=== PATIENT | male | born 1950 | race Caucasian/White ===

== ENCOUNTER 2020-06-16 13:33 | Inpatient (IN) | payer OTHER ==
[~2020-06-16] VITALS: Ht 175.3 cm; Wt 73.9 kg
[2020-06-16] MEDS ORDERED: DIVA500T2 PO (14:02)
[2020-06-16] MEDS ORDERED: LEVO112T5 PO (14:02)
[2020-06-16] MEDS ORDERED: DIVA250T4 PO (14:02)
[2020-06-16] MEDS ORDERED: ATOR10TA PO (14:02)
[2020-06-16] MEDS ORDERED: CALC-1029 PO (14:02)
[2020-06-16] MEDS ORDERED: GABA-532 PO (14:02)
[2020-06-16] MEDS ORDERED: ARIP20TA4 PO (14:02)
[2020-06-16] MEDS ORDERED: LORA-258 PO (14:02)
[2020-06-16] MEDS ORDERED: TAMS-3 PO (14:02)
[2020-06-16] MEDS ORDERED: OLAN10TA3 PO (14:02)
[2020-06-16] MEDS ORDERED: ALBUTEROL INH (14:02)
[2020-06-16] MEDS ORDERED: OXCA300T4 PO ×2 (14:02)
--- NOTE | 2020-06-16 15:40 | NUR ---
hospital sandwich provided per pt request.
--- NOTE | 2020-06-16 16:10 | NUR ---
pt transfered to [facility] in stable condition. pt remained calm and cooperative the whole er stay.
--- NOTE | 2020-06-16 16:30 | NUR ---
Gps/Coat Agent- Admitted a 69 years old male patient under 5150 for Gravely disabled. Per hold patient has worsening irritability and aggression. Seen by Psychiatrist over telehealth video chat and deemed failure to thrive at the Assisted living Facility. Upon face to face with patient , denies any S.I. nor H.I. , no access to lethal meds. Patient claimed he had 3 seizures in the past week and had a fall.Patient zuleika was confused, rabling, yelling ,screaming ,irritable, aggressive , masturbating in the gurney , bizarre and disorganized. Asked patient why he's admitted in the Hospital., stated " i dont know why i'm here" Routine admission care .
[2020-06-16 16:40] VITALS: BP 119/73
[2020-06-16] MEDS ORDERED: ALBUTEROL SULFATE 2.5 MG/3 ML NEBU NEB PRN (16:45)
[2020-06-16] MEDS ORDERED: BLOOD SUGAR DIAGNOSTIC 1 EACH STRIP VI ONE (17:30)
[2020-06-16] MEDS ORDERED: ZOLPIDEM 5 MG TABLET PO PRN (17:30)
[2020-06-16] MEDS ORDERED: MAGNESIUM HYDROXIDE 30 ML LIQUID UDC PO PRN (17:30)
[2020-06-16] MEDS ORDERED: MAG HYDROX/AL HYDROX/SIMETH 30 ML LIQUID UDC PO PRN (17:30)
[2020-06-16 18:12] VITALS: BP 119/75
[2020-06-16] MEDS: GABAPENTIN 300 MG CAPSULE PO SCH (18:36)
[2020-06-16] MEDS: ATORVASTATIN 10 MG TABLET PO SCH (18:36)
[2020-06-16 20:00] VITALS: BP 118/73
[2020-06-17] MEDS: LORAZEPAM 1 MG TABLET PO PRN (01:03)
--- NOTE | 2020-06-17 04:27 | NUR ---
GPS/Rn: Pt is new admit from previous shift, a/ox1, with poor insight. Pt unaware of surrounding, incoherent, and disorganized, confuse. Pt verbally responding and interacting but not making sense. Pt appears unkempt and easily irritated with interaction. Pt was offered some snacks during night due to constant yelling or talking. Noted few episode of banging bedside table or bed for attention. Redirected but not effective. Pt will cry on and off and prn was administered at 0102. At this time noted not effective, pt still up in bed and yelling, talking. Will anticipate increase behavior and changes, and will continue monitor pt as per Q/15mins head count.
[2020-06-17] MEDS: LEVOTHYROXINE SODIUM 112 MCG TABLET PO SCH (06:42)
[2020-06-17 07:30] VITALS: BP 120/74
[2020-06-17] MEDS: TAMSULOSIN HCL 0.4 MG CAP.SR.24H PO SCH (08:38)
[2020-06-17] MEDS: GABAPENTIN 300 MG CAPSULE PO SCH ×2 (08:38→16:48)
[2020-06-17] MEDS: CALCIUM CARB/VITAMIN D 500MG-200UNITS TABLET PO SCH (08:42)
[2020-06-17] MEDS: ACETAMINOPHEN 325 MG TABLET PO PRN ×2 (08:51→17:03)
--- NOTE | 2020-06-17 13:39 | NUR ---
Gps/Lnv Rodney(brother) called, was able to talked to Dr Hall, and information obtained patient was post Covid about 2 months ago, and since patient with limited mobility , uses wheel chair for locomotion . Able to transfer self from bed to chair. Neuro-consult was ordered by Dr Hall.
--- NOTE | 2020-06-17 15:00 | NUR ---
Gps/Outcome Analyst- An open slit wound behind his left eat, cleansed w/ NS kept dry, slightly red, no drainage noted , tenderness to site noted.
[2020-06-17 16:00] VITALS: BP 103/57
[2020-06-17] MEDS: OLANZAPINE ZYDIS 5 MG TAB.RAPDIS PO SCH ×2 (16:10→20:39)
[2020-06-17] MEDS: DIVALPROEX 500 MG TABLET.DR PO SCH (16:48)
--- NOTE | 2020-06-17 17:21 | NUR ---
Gps/Safety Trainer- Patient non compliant with his dietary restrictions, patient req. salts in his tray, , claimed he will not eat if staff dont give him salt. Requested, milk and shaye crackers.
[2020-06-17] MEDS: ATORVASTATIN 10 MG TABLET PO SCH (17:25)
[2020-06-17] MEDS: OXCARBAZEPINE 150 MG TABLET PO SCH (17:35)
--- NOTE | 2020-06-17 17:50 | NUR ---
Gps/Coreroom Foundry Laborer- Patient is needy, constantly asking for something .
[2020-06-17 20:39] VITALS: BP 111/69
--- NOTE | 2020-06-18 04:57 | NUR ---
GPS/rn notes: Pt was more aware of surrounding today. responded verbally and coherent a lot more. Requested to speak to his sister and phone number was provide and call was placed for him. Pt denied HI, SI or intent to harm self or others. Snack was give and eta 100%. Pt cooperative with routine medications and requested PRN sleep aid. Noted effective and pt asleep at this time. No excessive behavior noted, breathing even and no SOB noted. Will anticipate all changes, behavior and will continue safety precaution.
[2020-06-18] MEDS: LEVOTHYROXINE SODIUM 112 MCG TABLET PO SCH (06:44)
[2020-06-18 07:30] VITALS: BP 113/69
[2020-06-18] MEDS: ACETAMINOPHEN 325 MG TABLET PO PRN ×2 (08:17→16:50)
[2020-06-18] MEDS: DIVALPROEX 500 MG TABLET.DR PO SCH ×3 (08:24→16:45)
[2020-06-18] MEDS: OLANZAPINE ZYDIS 5 MG TAB.RAPDIS PO SCH ×2 (08:24→20:28)
[2020-06-18] MEDS: CALCIUM CARB/VITAMIN D 500MG-200UNITS TABLET PO SCH (08:24)
[2020-06-18] MEDS: GABAPENTIN 300 MG CAPSULE PO SCH ×2 (08:24→16:44)
[2020-06-18] MEDS: TAMSULOSIN HCL 0.4 MG CAP.SR.24H PO SCH (08:25)
--- NOTE | 2020-06-18 11:43 | NUR ---
Gps/Army Senior Officer- Patient observed walking with P.T. using front wheel walker, transfers self ind. from chair to bed and bed to chair, safety reviewed and emphasized.
--- NOTE | 2020-06-18 15:00 | NUR ---
Gps/Housing Director- Needy , demanding , needed redirections , with limit settings, irritable when not given chance to talk , claimed he wants staff to listen to him first before anything else. Dentures full, uses his own fixodent in his locker .
[2020-06-18 15:24] VITALS: BP 109/69
[2020-06-18] MEDS: OXCARBAZEPINE 150 MG TABLET PO SCH (17:11)
[2020-06-18] MEDS: ATORVASTATIN 10 MG TABLET PO SCH (17:11)
[2020-06-18 20:47] VITALS: BP 126/64
[2020-06-19] MEDS: LEVOTHYROXINE SODIUM 112 MCG TABLET PO SCH (06:04)
[2020-06-19] MEDS: ACETAMINOPHEN 325 MG TABLET PO PRN ×4 (06:24→21:20)
[2020-06-19 07:30] VITALS: BP 96/62
[2020-06-19] MEDS: GABAPENTIN 300 MG CAPSULE PO SCH ×2 (08:38→16:33)
[2020-06-19] MEDS: TAMSULOSIN HCL 0.4 MG CAP.SR.24H PO SCH (08:38)
[2020-06-19] MEDS: DIVALPROEX 500 MG TABLET.DR PO SCH ×3 (08:38→16:33)
[2020-06-19] MEDS: OLANZAPINE ZYDIS 5 MG TAB.RAPDIS PO SCH ×2 (08:38→20:32)
[2020-06-19] MEDS: CALCIUM CARB/VITAMIN D 500MG-200UNITS TABLET PO SCH (08:38)
[2020-06-19] MEDS: NEOMY/BACITRAC/POLYMI OINT 28.35 GM TUBE TOP SCH (08:39)
--- NOTE | 2020-06-19 10:45 | NUR ---
FACILITY CONTACT: SW contacted [facility] Address: [address] [place] [address] and spoke with suyapa Thayer who confirmed pt is able to return to the facility once stable for discharge.
--- NOTE | 2020-06-19 11:07 | NUR ---
FAMILY CONTACT: SW contacted pts brother Rodney ([phone]) for collateral information, treatment, and discharge plan. Per brother he would like for pt to return to [facility] Address: [id number] [place] [id number] .
--- NOTE | 2020-06-19 12:03 | NUR ---
INITIAL DISCHARGE PLAN: Per pt he wishes to return to [facility] Address: [address] [facility], [place] [address] . PALAK will help form a safe and proper discharge in collaboration with .
--- NOTE | 2020-06-19 15:22 | NUR ---
FIREARM REPORTS: Carbide Grinder completed and submitted a [facility] firearms report for [address] [place] [facility]. A copy of report has been placed in patients chart. Addendum: 06/19/20 at 1524 by MELLISSA CID SW ERROR NOTE DISREGARD
--- NOTE | 2020-06-19 15:24 | NUR ---
FIREARMS REPORT: Assault Amphibious Vehicle Officer completed and submitted a [facility] firearms report for [address] disability hold. A copy of report has been placed in patients chart.
--- NOTE | 2020-06-19 15:43 | NUR ---
Gps/RN: Patient needy and keep going to nurse station to ask for medication and belongings couple of times in the morning. Patient routine medication given with good effect. no agitation noted. not in distress. will continue monitor
[2020-06-19 15:48] VITALS: BP 100/69
[2020-06-19] MEDS: OXCARBAZEPINE 150 MG TABLET PO SCH (17:14)
[2020-06-19 20:00] VITALS: BP 101/60
[2020-06-19] MEDS: ATORVASTATIN 10 MG TABLET PO SCH (20:33)
[2020-06-20] MEDS: LEVOTHYROXINE SODIUM 112 MCG TABLET PO SCH (06:08)
[2020-06-20] MEDS: ACETAMINOPHEN 325 MG TABLET PO PRN ×3 (06:11→20:56)
[2020-06-20 07:30] VITALS: BP 95/50
[2020-06-20] MEDS: GABAPENTIN 300 MG CAPSULE PO SCH ×2 (08:26→17:10)
[2020-06-20] MEDS: DIVALPROEX 500 MG TABLET.DR PO SCH ×3 (08:26→17:10)
[2020-06-20] MEDS: OLANZAPINE ZYDIS 5 MG TAB.RAPDIS PO SCH ×2 (08:26→20:51)
[2020-06-20] MEDS: CALCIUM CARB/VITAMIN D 500MG-200UNITS TABLET PO SCH (08:27)
[2020-06-20] MEDS: NEOMY/BACITRAC/POLYMI OINT 28.35 GM TUBE TOP SCH (08:27)
[2020-06-20] MEDS: TAMSULOSIN HCL 0.4 MG CAP.SR.24H PO SCH (08:27)
[2020-06-20] MEDS: OXCARBAZEPINE 150 MG TABLET PO SCH (17:10)
[2020-06-20 17:16] VITALS: BP 100/60
[2020-06-20 20:03] VITALS: BP 93/64
[2020-06-20] MEDS: ATORVASTATIN 10 MG TABLET PO SCH (20:51)
[2020-06-21] MEDS: ACETAMINOPHEN 325 MG TABLET PO PRN ×4 (04:09→23:45)
[2020-06-21] MEDS: LEVOTHYROXINE SODIUM 112 MCG TABLET PO SCH (06:09)
[2020-06-21 06:38] LABS: BASOPHILS # (AUTO) 0.1 K/uL (0.0-8.0); EOSINOPHILS # (AUTO) 0.1 K/uL (0.0-0.7); EOSINOPHILS % (AUTO) 1.5 % (0.0-7.0); HEMATOCRIT 45.6 % (36.7-47.1); HEMOGLOBIN 15.2 g/dL (12.5-16.3); LYMPHOCYTES # (AUTO) 2.1 K/uL (20.0-40.0); MEAN CORPUSCULAR HEMOGLOBIN 32.1 uug (23.8-33.4); MEAN CORPUSCULAR HGB CONC 33 g/dL (32.5-36.3); MEAN CORPUSCULAR VOLUME 96.1 fL (73.0-96.2); MONOCYTES # (AUTO) 0.4 K/uL (2.0-10.0); MONOCYTES % (AUTO) 7.8 % (0.0-11.0); NEUTROPHILS # (AUTO) 2.7 K/uL (1.8-8.9); NEUTROPHILS % (AUTO) 50.7 % (38.5-71.5); PLATELET COUNT (AUTO) 336 K/uL (152-348); RED BLOOD CELL COUNT(AUTO) 4.74 MIL/uL (4.06-5.63); WHITE BLOOD COUNT (AUTO) 5.4 K/uL (3.6-10.2)
[2020-06-21 07:22] LABS: CREATININE 0.7 mg/dL (0.6-1.3); MAGNESIUM 1.9 mg/dL (1.8-2.4); PHOSPHOROUS 3.5 mg/dL (2.5-4.9); POTASSIUM 4.3 mmol/L (3.5-5.1)
[2020-06-21 07:30] VITALS: BP 99/71
--- NOTE | 2020-06-21 07:30 | NUR ---
RECEIVED PATIENT ON WHEELCHAIR, ATTENTION SEEKING, INTRUSIVE, NEEDED TO BE REDIRECTED, PATIENT COMPLIANT WITH MEDICATION, ASKING FOR PAIN MEDICATION, VERY NEEDY
[2020-06-21] MEDS: OLANZAPINE ZYDIS 5 MG TAB.RAPDIS PO SCH ×2 (08:44→20:16)
[2020-06-21] MEDS: LORAZEPAM 1 MG TABLET PO PRN (08:44)
[2020-06-21] MEDS: TAMSULOSIN HCL 0.4 MG CAP.SR.24H PO SCH (08:44)
[2020-06-21] MEDS: DIVALPROEX 500 MG TABLET.DR PO SCH ×3 (08:44→16:04)
[2020-06-21] MEDS: GABAPENTIN 300 MG CAPSULE PO SCH ×2 (08:44→16:03)
[2020-06-21] MEDS: CALCIUM CARB/VITAMIN D 500MG-200UNITS TABLET PO SCH (08:47)
[2020-06-21] MEDS: NEOMY/BACITRAC/POLYMI OINT 28.35 GM TUBE TOP SCH (08:48)
--- NOTE | 2020-06-21 12:16 | NUR ---
FACILITY CONTACT: SW contacted [facility] Address: [address] [place] [address] and spoke with Giovany [employer] who agreed with pts discharge tomorrow 06/22/20 at 12:00pm. He stated to fax prescriptions to the [facility] fax: [phone].
--- NOTE | 2020-06-21 14:07 | NUR ---
FAMILY CONTACT: SW contacted pts brother Rodney ([phone]) and informed him of pts discharge tomorrow to [facility]. Brother agrees with discharge plan.
[2020-06-21 16:06] VITALS: BP 112/54
[2020-06-21] MEDS: OXCARBAZEPINE 150 MG TABLET PO SCH (17:21)
--- NOTE | 2020-06-21 18:11 | NUR ---
PATIENT BEEN REDIRECTABLE COVID TEST WAS DONE TODAY REQUIREMENTS FOR HIS DISCHARGE, PATIENT WAS NEGATIVE, PATIENT NEEDY AND NEEDED ATTENTION, NO DISTRESS, DENIES SI AND HI
[2020-06-21 20:10] VITALS: BP 121/74
[2020-06-21] MEDS: ATORVASTATIN 10 MG TABLET PO SCH (20:16)
[2020-06-22] MEDS: LEVOTHYROXINE SODIUM 112 MCG TABLET PO SCH (06:20)
[2020-06-22] MEDS: ACETAMINOPHEN 325 MG TABLET PO PRN ×2 (06:21→12:04)
[2020-06-22 07:30] VITALS: BP 108/58
[2020-06-22] MEDS: TAMSULOSIN HCL 0.4 MG CAP.SR.24H PO SCH (08:55)
[2020-06-22] MEDS: DIVALPROEX 500 MG TABLET.DR PO SCH ×2 (08:55→12:04)
[2020-06-22] MEDS: CALCIUM CARB/VITAMIN D 500MG-200UNITS TABLET PO SCH (08:55)
[2020-06-22] MEDS: GABAPENTIN 300 MG CAPSULE PO SCH (08:55)
[2020-06-22] MEDS: OLANZAPINE ZYDIS 5 MG TAB.RAPDIS PO SCH (08:56)
[2020-06-22] MEDS: NEOMY/BACITRAC/POLYMI OINT 28.35 GM TUBE TOP SCH (08:59)
--- NOTE | 2020-06-22 09:13 | NUR ---
DISCHARGE NOTE: Pt will be discharged at 12:00pm via [facility] to [facility] Address: [address] [place] [address] . Pts brother Rodney ([phone]) has been notified and agrees with discharge plan. Pts mood is euthymic with congruent affect. Pt denies visual/auditory hallucinations and denies suicidal/homicidal ideation. Pt presents alert and oriented x4 ans is appropriately dressed and groomed. Pt will follow up with Psychiatrist: Dr. Kristine Bonilla [address] [address] and Subpoena Server: Dr. JULIO [facility] [address] [place] [address] . The multidisciplinary exit care form was done, printed, signed, and given to the patient.
--- NOTE | 2020-06-22 12:00 | NUR ---
Gps/Sales Attendant- Called [facility], spoked to Rut, reviewed medications , informed of the discharged plan, waiting for patient . Dr Kristine Bonilla (Psychiatrist) will follow patient ,drew Jara INSPECTOR FINAL ASSEMBLY ELECTRICAL was informed of the discharge. All belongings was given back to patient..
--- NOTE | 2020-06-22 13:07 | NUR ---
Gps/Polytechnic Registrar- Discharged via taxi, patient in good spirit no complaints noted.
== END 2020-06-22 13:00 | disposition home or self-care (01) | DRG 885 ==
LOC: ER 13:33 → GPS 16:11
PROVIDERS: ADMIT Psychiatry & Neurology Psychiatry; ATTEND Nurse Practitioner Acute Care
DX: F25.0 Schizoaffective disorder, bipolar type (principal); G40.909 Epilepsy, unspecified, not intractable, without status epilepticus; E78.5 Hyperlipidemia, unspecified; E03.9 Hypothyroidism, unspecified; F17.210 Nicotine dependence, cigarettes, uncomplicated; N40.0 Benign prostatic hyperplasia without lower urinary tract symptoms; Z73.6 Limitation of activities due to disability; F29 Unspecified psychosis not due to a substance or known physiological condition; F39 Unspecified mood [affective] disorder; F19.90 Other psychoactive substance use, unspecified, uncomplicated
CPT/HCPCS: 36415; 80164; 83735; 84100; 85025; 93005

== ENCOUNTER 2025-01-31 14:40 | Inpatient (IN) | payer OTHER, MEDICAID ==
[~2025-01-31] VITALS: Ht 167.6 cm; Wt 77.6 kg
[2025-01-31 00:30] VITALS: BP 124/71; TEMP 97.8; O2SAT 93
[~2025-01-31 14:40] MED LIST: ALBUTEROL INH; ATOR10TA PO; CALC-1029 PO; GABA-532 PO; LEVO112T5 PO; TAMS-3 PO
[2025-01-31 15:03] LABS: BASOPHILS # (AUTO) 0.1 K/UL (0.0-0.2); BASOPHILS % (AUTO) 1.1 % (0.0-2.0); EOSINOPHILS # (AUTO) 0.1 K/uL (0.0-0.7); EOSINOPHILS % (AUTO) 1.3 % (0.0-7.0); HEMATOCRIT 37.6 % (36.7-47.1); HEMOGLOBIN 12.7 g/dL (12.5-16.3); LYMPHOCYTES # (AUTO) 2.1 K/uL (0.8-4.8); LYMPHOCYTES % (AUTO) 28.4 % (20.5-51.5); MEAN CORPUSCULAR HEMOGLOBIN 30.2 uug (23.8-33.4); MEAN CORPUSCULAR HGB CONC 34 g/dL (32.5-36.3); MEAN CORPUSCULAR VOLUME 89.5 fL (73.0-96.2); MONOCYTES # (AUTO) 0.7 K/uL (0.1-1.30); MONOCYTES % (AUTO) 9.9 % (0.0-11.0); NEUTROPHILS # (AUTO) 4.4 K/uL (1.8-8.9); NEUTROPHILS % (AUTO) 59.3 % (38.5-71.5); PLATELET COUNT (AUTO) 202 K/uL (152-348); RED CELL DISTRIBUTION WIDTH 17.3 % (12.1-16.2); WHITE BLOOD COUNT (AUTO) 7.5 K/uL (3.6-10.2)
[2025-01-31 15:11] LABS: DIFFERENTIAL COMMENT 1
[2025-01-31 15:14] LABS: CALCIUM 8.8 mg/dL (8.5-10.1); CARBON DIOXIDE 29 mmol/L (21-32); CHLORIDE 101 mmol/L (98-107); CREATININE 0.5 mg/dL (0.6-1.3); GLUCOSE 89 mg/dL (74-106); POTASSIUM 4.8 mmol/L (3.5-5.1); SODIUM SERUM 139 mmol/L (136-145); UREA NITROGEN, BLOOD 22 mg/dL (7-18)
[2025-01-31] MEDS ORDERED: VALPROATE SODIUM 500 MG/5 ML VIAL IV ONE (15:17)
[2025-01-31] MEDS: VALPROATE SODIUM 500 MG/5 ML VIAL IV ONE (15:18)
[2025-01-31 15:29] LABS: ALANINE AMINOTRANSFERASE 24 U/L (16-63); ALBUMIN 3.1 g/dL (3.4-5.0); ALKALINE PHOSPHATASE 58 U/L (50-136); ASPARTATE AMINOTRANSFERASE 17 U/L (15-37); BILIRUBIN,DIRECT 0.1 mg/dL (0.0-0.2); BILIRUBIN,TOTAL 0.2 mg/dL (0.2-1.0); TOTAL PROTEIN, SERUM 6.6 g/dL (6.4-8.2); VALPROIC ACID 60 ug/mL (50-100)
[2025-01-31] MEDS ORDERED: ACET-2030 PO (16:09)
[2025-01-31] MEDS ORDERED: VALP250C3 PO ×2 (16:09)
[2025-01-31] MEDS ORDERED: OXCA300T4 PO (16:09)
[2025-01-31] MEDS ORDERED: RISP4TAB70 PO (16:09)
[2025-01-31] MEDS ORDERED: VALP500S PO (16:09)
[2025-01-31] MEDS ORDERED: OXCA300T15 PO (16:09)
[2025-01-31] MEDS ORDERED: LORAZEPAM 2 MG/1 ML VIAL ONE (16:35)
[2025-01-31] MEDS: LORAZEPAM 2 MG/1 ML VIAL IV ONE (17:00)
[2025-01-31 17:07] LABS: ETHANOL < 3 MG/DL (0-10)
[2025-01-31] MEDS ORDERED: ONDANSETRON 4 MG/2 ML VIAL IV PRN (20:30)
[2025-01-31] MEDS ORDERED: HYDROCODONE/APAP 5-325MG TABLET PO PRN (20:30)
[2025-01-31] MEDS ORDERED: TEMAZEPAM 15 MG CAPSULE PO PRN (20:30)
[2025-01-31] MEDS: TAMSULOSIN HCL 0.4 MG CAP.SR.24H PO SCH (22:40)
[2025-01-31] MEDS: VALPROIC ACID 250 MG CAPSULE PO SCH (22:40)
[2025-01-31] MEDS: GABAPENTIN 100 MG CAPSULE PO SCH (22:40)
[2025-01-31] MEDS: ATORVASTATIN 10 MG TABLET PO SCH (22:40)
[2025-01-31] MEDS: DOCUSATE SODIUM 250 MG CAPSULE PO SCH (22:40)
[2025-01-31] MEDS: risperiDONE 2 MG TABLET PO SCH (22:40)
[2025-01-31] MEDS: OXCARBAZEPINE 300 MG TABLET PO SCH (22:40)
[2025-01-31] MEDS: LORAZEPAM 2 MG/1 ML VIAL IV PRN (23:28)
[2025-02-01] MEDS: OLANZAPINE 10 MG VIAL IM PRN (00:21)
[2025-02-01 03:29] VITALS: O2SAT 98
[2025-02-01 04:31] VITALS: BP 143/83; TEMP 98.1; O2SAT 97
[2025-02-01] MEDS: PANTOPRAZOLE SODIUM 40 MG TABLET.DR PO SCH (06:39)
[2025-02-01 06:49] LABS: BASOPHILS % (AUTO) 0.6 % (0.0-2.0); EOSINOPHILS # (AUTO) 0.1 K/uL (0.0-0.7); EOSINOPHILS % (AUTO) 0.8 % (0.0-7.0); HEMATOCRIT 41.5 % (36.7-47.1); HEMOGLOBIN 14.2 g/dL (12.5-16.3); LYMPHOCYTES # (AUTO) 1.7 K/uL (0.8-4.8); LYMPHOCYTES % (AUTO) 19.2 % (20.5-51.5); MEAN CORPUSCULAR HEMOGLOBIN 30.6 uug (23.8-33.4); MEAN CORPUSCULAR HGB CONC 34 g/dL (32.5-36.3); MEAN CORPUSCULAR VOLUME 89.2 fL (73.0-96.2); MONOCYTES # (AUTO) 0.9 K/uL (0.1-1.30); MONOCYTES % (AUTO) 10.7 % (0.0-11.0); NEUTROPHILS # (AUTO) 5.9 K/uL (1.8-8.9); NEUTROPHILS % (AUTO) 68.7 % (38.5-71.5); PLATELET COUNT (AUTO) 211 K/uL (152-348); RED BLOOD CELL COUNT(AUTO) 4.65 MIL/uL (4.06-5.63); RED CELL DISTRIBUTION WIDTH 16.9 % (12.1-16.2); WHITE BLOOD COUNT (AUTO) 8.6 K/uL (3.6-10.2)
[2025-02-01 06:57] LABS: DIFFERENTIAL COMMENT 1
[2025-02-01 07:08] LABS: ALANINE AMINOTRANSFERASE 27 U/L (16-63); ALBUMIN 3.3 g/dL (3.4-5.0); ALKALINE PHOSPHATASE 70 U/L (50-136); ASPARTATE AMINOTRANSFERASE 20 U/L (15-37); BILIRUBIN,TOTAL 0.3 mg/dL (0.2-1.0); CALCIUM 9.5 mg/dL (8.5-10.1); CARBON DIOXIDE 32 mmol/L (21-32); CHLORIDE 101 mmol/L (98-107); CHOLESTEROL 153 mg/dL (<200); CREATININE 0.5 mg/dL (0.6-1.3); GLUCOSE 81 mg/dL (74-106); HDL CHOLESTEROL 71 mg/dL (40-60); PHOSPHOROUS 3.5 mg/dL (2.5-4.9); POTASSIUM 4.6 mmol/L (3.5-5.1); SODIUM SERUM 139 mmol/L (136-145); TOTAL PROTEIN, SERUM 7.1 g/dL (6.4-8.2); TRIGLYCERIDES 47 MG/DL (30-150); UREA NITROGEN, BLOOD 11 mg/dL (7-18)
[2025-02-01 07:42] VITALS: BP 156/72; TEMP 98.8; O2SAT 96
[2025-02-01 08:16] LABS: THYROID STIMULATING HORMONE 10.018 mIU/mL (0.358-3.740)
[2025-02-01] MEDS: OXCARBAZEPINE 300 MG TABLET PO SCH (09:00)
[2025-02-01] MEDS ORDERED: VITAMIN D3 PO SCH (09:00)
[2025-02-01] MEDS: VALPROIC ACID 250 MG CAPSULE PO SCH (09:00)
[2025-02-01] MEDS ORDERED: [UNRECOGNIZED DRUG - OTHER] PO SCH (09:00)
[2025-02-01] MEDS ORDERED: CIT PO SCH (09:00)
[2025-02-01] MEDS: LEVOTHYROXINE SODIUM 112 MCG TABLET PO SCH (09:00)
[2025-02-01] MEDS ORDERED: CALCIUM CARB PO SCH (09:00)
[2025-02-01 11:42] VITALS: BP 109/65; TEMP 99.5; O2SAT 98
[2025-02-01] MEDS ORDERED: CHOL400T2 PO (13:26)
[2025-02-01] MEDS: LORAZEPAM 2 MG/1 ML VIAL IM ONE (13:56)
[2025-02-01] MEDS: OLANZAPINE 10 MG VIAL IM ONE (15:07)
[2025-02-01] MEDS: GABAPENTIN 100 MG CAPSULE PO SCH (16:43)
[2025-02-01] MEDS: IV NS 1000 ML 1,000 ML IV PRN (17:58)
[2025-02-01 19:30] VITALS: BP 126/66; TEMP 98.1; O2SAT 82; O2SAT 95
[2025-02-02] MEDS: ACETAMINOPHEN 325 MG TABLET PO PRN (00:35)
[2025-02-02 06:55] LABS: BASOPHILS % (AUTO) 0.6 % (0.0-2.0); EOSINOPHILS # (AUTO) 0.1 K/uL (0.0-0.7); HEMATOCRIT 41.3 % (36.7-47.1); HEMOGLOBIN 13.9 g/dL (12.5-16.3); LYMPHOCYTES # (AUTO) 1.9 K/uL (0.8-4.8); LYMPHOCYTES % (AUTO) 29.9 % (20.5-51.5); MEAN CORPUSCULAR HGB CONC 34 g/dL (32.5-36.3); MEAN CORPUSCULAR VOLUME 89.2 fL (73.0-96.2); MONOCYTES # (AUTO) 0.8 K/uL (0.1-1.30); MONOCYTES % (AUTO) 12.1 % (0.0-11.0); NEUTROPHILS # (AUTO) 3.6 K/uL (1.8-8.9); NEUTROPHILS % (AUTO) 55.4 % (38.5-71.5); PLATELET COUNT (AUTO) 213 K/uL (152-348); RED BLOOD CELL COUNT(AUTO) 4.63 MIL/uL (4.06-5.63); WHITE BLOOD COUNT (AUTO) 6.5 K/uL (3.6-10.2)
[2025-02-02 07:07] LABS: DIFFERENTIAL COMMENT 1
[2025-02-02 07:14] LABS: CALCIUM 9.3 mg/dL (8.5-10.1); CARBON DIOXIDE 27 mmol/L (21-32); CHLORIDE 107 mmol/L (98-107); CREATININE 0.5 mg/dL (0.6-1.3); GLUCOSE 84 mg/dL (74-106); POTASSIUM 4.1 mmol/L (3.5-5.1); SODIUM SERUM 142 mmol/L (136-145); UREA NITROGEN, BLOOD 19 mg/dL (7-18)
[2025-02-02 07:32] VITALS: BP 97/66; TEMP 98.5; O2SAT 91
[2025-02-02] MEDS: CHOLECALCIFEROL 400 UNITS TABLET PO SCH (08:20)
[2025-02-02] MEDS ORDERED: OLANZAPINE 10 MG VIAL IM PRN (09:15)
[2025-02-02] MEDS: risperiDONE 2 MG TABLET PO SCH (12:14)
[2025-02-02 20:16] VITALS: BP 98/58; TEMP 98.3; O2SAT 95
[2025-02-03 05:45] VITALS: BP 98/58; TEMP 98.3; O2SAT 95
[2025-02-03 06:46] VITALS: BP 112/65; TEMP 97.5; O2SAT 97
[2025-02-03 08:45] VITALS: BP 112/75; TEMP 97.5; O2SAT 97
[2025-02-03] MEDS ORDERED: RISP2TAB5 PO (09:59)
[2025-02-03] MEDS ORDERED: LEVO125T8 PO (09:59)
[2025-02-03] MEDS ORDERED: DOCU250C14 PO (09:59)
[2025-02-03] MEDS ORDERED: PANT40TA49 PO (09:59)
[2025-02-03 11:19] VITALS: BP 98/55; TEMP 98.3; O2SAT 97
[2025-02-04] MEDS ORDERED: LEVOTHYROXINE SODIUM 125 MCG TABLET PO SCH (07:00)
== END 2025-02-03 15:50 | DRG 101 ==
LOC: ER 14:40 → TELE3 21:56 → MEDSURG3 02-01 08:48
PROVIDERS: ADMIT Internal Medicine; ATTEND Internal Medicine
DX: G40.909 Epilepsy, unspecified, not intractable, without status epilepticus (principal); E03.9 Hypothyroidism, unspecified; Z78.1 Physical restraint status; N40.0 Benign prostatic hyperplasia without lower urinary tract symptoms; E78.5 Hyperlipidemia, unspecified; F20.9 Schizophrenia, unspecified; F03.90 Unspecified dementia, unspecified severity, without behavioral disturbance, psychotic disturbance, mood disturbance, and anxiety; J44.9 Chronic obstructive pulmonary disease, unspecified; Z79.899 Other long term (current) drug therapy; Z87.891 Personal history of nicotine dependence; E66.9 Obesity, unspecified; Z68.27 Body mass index [BMI] 27.0-27.9, adult; R94.02 Abnormal brain scan
CPT/HCPCS: 36415; 70450; 71045; 80164; 83735; 83921; 84100; 84443; 85025; A4606; A4663; G0378; G0480; J2060; J2358; J3490; J7040